=== PATIENT | female | born 1985 | race Hispanic/Latino ===

== ENCOUNTER 2023-01-22 10:40 | Outpatient (CLI) | payer OTHER | END 2023-01-22 10:41 | disposition home or self-care (01) | LOC: CSHULT 10:40 | PROVIDERS: ATTEND Nurse Practitioner Women's Health | DX: O09.893 Supervision of other high risk pregnancies, third trimester (principal); Z3A.36 36 weeks gestation of pregnancy | CPT/HCPCS: 76805 ==

== ENCOUNTER 2023-02-09 10:22 | Inpatient (IN) | payer MEDICAID, OTHER ==
[2023-02-09 15:50] VITALS: BMI 51.7
[2023-02-09] MEDS ORDERED: Carboprost 250 MCG/ML AMP IM PRN (17:15)
[2023-02-09] MEDS ORDERED: Acetaminophen 500 MG TAB PO PRN (17:15)
[2023-02-09] MEDS ORDERED: Ondansetron PF 4 MG/2 ML Vial IVP PRN (17:15)
[2023-02-09] MEDS ORDERED: Promethazine HCl 25 MG/ML VIAL IM PRN (17:15)
[2023-02-09] MEDS ORDERED: Diphenoxylate HCl/Atropine Tablet PO PRN (17:15)
[2023-02-09] MEDS ORDERED: NS w/ Oxytocin 30 units 500 ML IV SCH (17:15)
[2023-02-09] MEDS ORDERED: Tranexamic Acid 1,000 MG/10 ML VIAL IVP PRN (17:15)
[2023-02-09] MEDS ORDERED: hydrALAZINE 20 MG/ML VIAL SLOW IVP PRN (17:15)
[2023-02-09] MEDS ORDERED: fentaNYL 50 mcg/mL 1 mL Vial SLOW IVP PRN (17:15)
[2023-02-09] MEDS ORDERED: Misoprostol 200 MCG TAB PR PRN (17:15)
[2023-02-09] MEDS ORDERED: Methylergonovine 0.2 MG/ML VIAL IM PRN (17:15)
[2023-02-09] MEDS ORDERED: Terbutaline Sulfate 1 MG/ML VIAL ONE (17:33)
[2023-02-09 17:34] LABS: Hemoglobin 10.2 g/dL (12.0-15.5); Mean Corpuscular HGB CONC 32.2 g/dL (32.0-36.0); Mean Corpuscular Hemoglobin 25.9 pg (27.0-33.0); Mean Corpuscular Volume 80.5 fl (81.6-98.3); Mean Platelet Volume 12.3 fl (7.4-10.4); Platelet Count 228 10x3/uL (150-450); RBC Distribution Width 14.3 % (11.5-14.5); Red Blood Cell (RBC) Count 3.94 10x6/uL (3.90-5.03); White Blood Cell (WBC) Count 6.8 10x3/uL (3.5-10.5)
[2023-02-09] MEDS ORDERED: Terbutaline Sulfate 1 MG/ML VIAL SC SCH (18:00)
[2023-02-09 18:20] LABS: HBSAg Index 0.17 S/CO (0-0.99); Hep B Surf Ag - L&D Non-Reactive S/CO (NonReactive); Syphilis Antibody Nonreactive (Nonreactive); Syphilis Antibody Index 0.06 S/CO (<1.00 Non-Reactive)
[2023-02-09] MEDS ORDERED: Famotidine/PF 20 mg/2ml Vial SLOW IVP PRN (21:05)
[2023-02-09] MEDS ORDERED: Bicitra 30 ML UDCUP PO PRN (21:05)
[2023-02-09] MEDS ORDERED: CEFAZOLIN 3 GM, Admixture Fee 1 EACH in Sodium Chloride 0.9% 100 ML IVPB SCH (21:15)
[2023-02-10] MEDS ORDERED: Famotidine/PF 20 mg/2ml Vial ONE (07:23)
[2023-02-10] MEDS ORDERED: Promethazine HCl 25 MG/ML VIAL IM PRN ×2 (07:27→11:25)
[2023-02-10] MEDS ORDERED: diphenhydrAMINE 50 MG/ML VIAL IVP PRN (07:27)
[2023-02-10] MEDS ORDERED: Promethazine HCl 25 MG SUPP PR PRN (07:27)
[2023-02-10] MEDS ORDERED: Ondansetron PF 4 MG/2 ML Vial IVP PRN ×2 (07:27→11:25)
[2023-02-10] MEDS ORDERED: Naloxone HCl 0.4 mg/ml Vial IVP PRN ×2 (07:27)
[2023-02-10] MEDS ORDERED: Meperidine HCl/PF 25 MG/ML VIAL SLOW IVP PRN (07:27)
[2023-02-10] MEDS ORDERED: Moisturizing Cream (Eucerin) 113 GM JAR TOP PRN (07:27)
[2023-02-10] MEDS ORDERED: Fentanyl 100 MCG/2 ML VIAL SLOW IVP PRN (07:27)
[2023-02-10] MEDS ORDERED: Ondansetron HCl/PF 4 MG/2 ML Vial IVP PRN (07:27)
[2023-02-10] MEDS ORDERED: Naloxone HCl 0.4 mg/ml Vial IV PRN (07:27)
[2023-02-10] MEDS ORDERED: Communication Order-Pharmacy FS SCH (07:30)
[2023-02-10] MEDS ORDERED: fentaNYL 50 mcg/mL 1 mL Vial ONE (07:33)
[2023-02-10] MEDS ORDERED: Morphine PF 10 MG/10 ML VIAL ONE (07:33)
[2023-02-10] MEDS ORDERED: Phenylephrine 40 MG/NS 250 ML 250 ML ONE (07:35)
[2023-02-10] MEDS ORDERED: Ondansetron PF 4 MG/2 ML Vial ONE (07:42)
[2023-02-10] MEDS ORDERED: Dexamethasone 4 mg/ml Vial ONE (07:42)
[2023-02-10] MEDS ORDERED: Oxytocin 10 UNITS/ML VIAL ONE (07:42)
[2023-02-10] MEDS: Lactated Ringer's 1,000 ML IV SCH ×2 (11:21→11:22)
[2023-02-10] MEDS ORDERED: Boostrix 0.5 ML (Tdap) VIAL (>/=7 yrs of age) IM ONE (11:25)
[2023-02-10] MEDS ORDERED: diphenhydrAMINE 25 MG CAP PO PRN (11:25)
[2023-02-10] MEDS ORDERED: HYDROcodone/Acetaminophen 5/325 mg Tablet PO PRN (11:25)
[2023-02-10] MEDS ORDERED: hydrALAZINE 20 MG/ML VIAL SLOW IVP PRN (11:25)
[2023-02-10] MEDS ORDERED: Bisacodyl 10 MG SUPP PR PRN (11:25)
[2023-02-10] MEDS ORDERED: Simethicone Chewable 80 MG TAB PO PRN (11:25)
[2023-02-10] MEDS: Ferrous Sulfate 325 MG TAB PO SCH (19:09)
[2023-02-10] MEDS: Docusate 100 MG CAP PO SCH (22:02)
[2023-02-11 03:50] LABS: Mean Corpuscular HGB CONC 31.8 g/dL (32.0-36.0); Mean Corpuscular Hemoglobin 25.9 pg (27.0-33.0); Mean Corpuscular Volume 81.6 fl (81.6-98.3); Mean Platelet Volume 12.7 fl (7.4-10.4); Platelet Count 204 10x3/uL (150-450); RBC Distribution Width 14.2 % (11.5-14.5); Red Blood Cell (RBC) Count 3.47 10x6/uL (3.90-5.03); White Blood Cell (WBC) Count 9.3 10x3/uL (3.5-10.5)
[2023-02-11] MEDS ORDERED: HYDROcodone/Acetaminophen 5/325 mg Tablet ONE (06:00)
[2023-02-11] MEDS: Ferrous Sulfate 325 MG TAB PO SCH ×2 (08:10→08:59)
[2023-02-11] MEDS: Docusate 100 MG CAP PO SCH ×2 (08:59→21:21)
[2023-02-11] MEDS: Prenatal Vitamin 1 TAB PO SCH (08:59)
[2023-02-11] MEDS: HYDROcodone/Acetaminophen 5/325 mg Tablet PO PRN ×3 (09:47→17:58)
[2023-02-11] MEDS ORDERED: hydrALAZINE 20 MG/ML VIAL SLOW IVP PRN (20:56)
[2023-02-11] MEDS ORDERED: Labetalol HCl 100 MG TAB PO SCH (21:00)
[2023-02-11] MEDS: Milk Of Magnesia 30 ML UDCUP PO SCH (21:22)
[2023-02-12] MEDS: HYDROcodone/Acetaminophen 5/325 mg Tablet PO PRN ×4 (01:40→19:29)
[2023-02-12] MEDS: Labetalol HCl 100 MG TAB PO SCH ×3 (05:15→21:46)
[2023-02-12] MEDS: Ferrous Sulfate 325 MG TAB PO SCH ×3 (07:48→21:42)
[2023-02-12] MEDS: Prenatal Vitamin 1 TAB PO SCH (08:35)
[2023-02-12] MEDS: Docusate 100 MG CAP PO SCH ×2 (08:35→21:45)
[2023-02-12] MEDS: Milk Of Magnesia 30 ML UDCUP PO SCH (21:44)
[2023-02-13] MEDS: HYDROcodone/Acetaminophen 5/325 mg Tablet PO PRN ×3 (05:38→14:08)
[2023-02-13] MEDS: Labetalol HCl 100 MG TAB PO SCH ×2 (06:15→14:08)
[2023-02-13] MEDS: Ferrous Sulfate 325 MG TAB PO SCH (09:34)
[2023-02-13] MEDS: Docusate 100 MG CAP PO SCH (09:34)
[2023-02-13] MEDS: Prenatal Vitamin 1 TAB PO SCH (09:34)
[2023-02-13 11:14] VITALS: BP 136/76; TEMP 97.6
== END 2023-02-13 16:50 | disposition home or self-care (01) | DRG 788 ==
LOC: CSHLD 15:17 → CSHPP 02-10 10:52
PROVIDERS: ADMIT Family Medicine; ATTEND Family Medicine
PROC: 10D00Z1 Extraction of Products of Conception, Low, Open Approach (ICD-10-PCS; principal; 2023-02-10)
PROC: 3E0M05Z Introduction of Adhesion Barrier into Peritoneal Cavity, Open Approach (ICD-10-PCS; 2023-02-10)
DX: O32.8XX0 Maternal care for other malpresentation of fetus, not applicable or unspecified (principal); Z3A.39 39 weeks gestation of pregnancy; Z37.0 Single live birth; Z88.6 Allergy status to analgesic agent; E66.01 Morbid (severe) obesity due to excess calories; O99.214 Obesity complicating childbirth; Z79.899 Other long term (current) drug therapy; O99.824 Streptococcus B carrier state complicating childbirth; O99.344 Other mental disorders complicating childbirth; F32.A Depression, unspecified; F41.9 Anxiety disorder, unspecified
CPT/HCPCS: 36415; 51702; 85027; 86780; 86850; 86900; 86901; 87340; J1100; J2274; J2405; J2590; J3010; J3105; J3490